=== PATIENT | male | born 1990 | race African-American/Black ===

== ENCOUNTER 2018-03-14 10:24 | Emergency (ER) | payer SELFPAY ==
[2013-12-26 00:20] VITALS: BP 142/87
[~2018-03-14] VITALS: Ht 180.3 cm; Wt 660.0 kg
--- NOTE | 2018-03-14 10:50 | PHYS DOC ---
Past Medical History Past Medical History: Bronchitis Past Surgical History: No Surgical History Alcohol Use: None Drug Use: None Adult General Chief Complaint Chief Complaint: COUGH HPI HPI Patient is a 27 year old AA male presents to the emergency Department today with complaints of a productive cough with white to pale yellow sputum for the last 5 days. He also reports chest tightness, and some shortness of breath. He denies any fever, ear pain, nausea, vomiting, diarrhea, or chest pain. He states that his throat has been a little sore. He states that he is a smoker, he denies any history of asthma or COPD. Review of Systems Review of Systems Constitutional: Denies fever or chills [] Eyes: Denies change in visual acuity, redness, or eye pain [] HENT: Reports nasal congestion and sore throat [] Respiratory: Reports productive cough and shortness of breath with chest tightness [] Cardiovascular: Denies chest pain GI: Denies abdominal pain, nausea, vomiting, or diarrhea [] Integument: Denies rash or skin lesions [] Neurologic: Denies headache, focal weakness or sensory changes [] All other systems were reviewed and found to be within normal limits, except as documented in this note. Current Medications Current Medications Current Medications Medications (Trade) Dose Ordered Sig/Rubia Start Time Stop Time Status Last Admin Dose Admin Albuterol Sulfate (Ventolin Neb Soln) 2.5 mg 1X ONCE 03/14/18 10:45 03/14/18 10:47 DC 03/14/18 11:02 2.5 MG Allergies Allergies Allergies Coded Allergies Type Severity Reaction Last Updated Verified No Known Drug Allergies 06/25/13 No Physical Exam Physical Exam Constitutional: Well developed, well nourished, no acute distress, non-toxic appearance. [] HENT: Normocephalic, atraumatic, bilateral external ears normal, oropharynx moist, postnasal drainage present, no oral exudates, nose normal. [] Eyes: PERRLA, conjunctiva normal, no discharge. [] Neck: Normal range of motion, no tenderness, supple, no stridor. [] Cardiovascular:Heart rate regular rhythm, no murmur [] Lungs & Thorax: Bilateral breath sounds diminished posteriorly to auscultation , clear in upper tai Skin: Warm, dry, no erythema, no rash. [] Extremities: No cyanosis, no clubbing, ROM intact, no edema. [] Neurologic: Alert and oriented X 3, normal motor function, normal sensory function, no focal deficits noted. [] Psychologic: Affect normal, judgement normal, mood normal. [] Current Patient Data Vital Signs Vital Signs Date Time Temp Pulse Resp B/P (MAP) Pulse Ox O2 Delivery O2 Flow Rate FiO2 03/14/18 11:02 Room Air 03/14/18 10:35 98.4 54 16 110/68 (82) 98 98.4 EKG EKG [] Radiology/Procedures Radiology/Procedures [] Course & Med Decision Making Course & Med Decision Making Pertinent Labs and Imaging studies reviewed. (See chart for details) DX: bronchitis Pt was given one albuterol nebulizer treatment in the emergency department. Increased lung sounds and patient reports feeling better after treatment. Will prescribe Tessalon Perles and a Pro Air MDI. Patient verbalized an understanding of home care, medications, follow-up, and return to ED instructions and was in agreement with the plan of care. [] Staff Physician Addendum: I was working in the ER during the course of this patient's visit. I was available for consultation as needed, but I was not directly involved in the care of this patient. Dragon Disclaimer Dragon Disclaimer This electronic medical record was generated, in whole or in part, using a voice recognition dictation system. Departure Departure Impression: Primary Impression: Bronchitis Disposition: 01 HOME, SELF-CARE Condition: STABLE Referrals: NO PCP (PCP) Patient Instructions: Acute Bronchitis, [id number] Additional Instructions: Fill prescription(s) and use as directed. Tylenol or ibuprofen prn pain/fever. Increase clear fluids. Avoid triggers such as smoke, fragrance, dust, and pollen. Follow-up with your primary care doctor as needed. Scripts Benzonatate (TESSALON PERLE) 100 Mg Capsule 1 CAP PO TID PRN for COUGH, #21 CAP 0 Refills Prov: KRISTINA BARILLAS AIR POLLUTION AUDITOR 03/14/18 Albuterol Sulfate (PROAIR HFA INHALER) 8.5 Gm Hfa.aer.ad 1-2 PUFF INH PRN Q6HRS PRN for SHORTNESS OF BREATH for 10 Days, #1 INHALER 0 Refills Prov: KRISTINA BARILLAS AIR POLLUTION AUDITOR 03/14/18 KRISTINA BARILLAS AIR POLLUTION AUDITOR Mar 14, 2018 10:50 RITA LIMON MD Mar 14, 2018 12:48
[2018-03-14] MEDS: ALBUTEROL SULFATE 2.5 MG/3 ML NEBU. NEB ONE (11:02)
[2018-03-14] MEDS ORDERED: BENZ100C PO (11:54)
[2018-03-14] MEDS ORDERED: PROAIR HFA8.5 GM INH (11:54)
== END 2018-03-14 12:02 | disposition home or self-care (01) ==
LOC: ER 10:24
DX: J40 Bronchitis, not specified as acute or chronic (principal)
CPT/HCPCS: 94640; 99283; J7613

== ENCOUNTER 2018-03-21 20:37 | Emergency (ER) | payer SELFPAY ==
[~2018-03-21] VITALS: Ht 180.3 cm; Wt 65.8 kg
[~2018-03-21 20:37] MED LIST: BENZ100C PO; PROAIR HFA8.5 GM INH
[2018-03-21 20:55] VITALS: BP 121/63
--- NOTE | 2018-03-21 21:05 | PHYS DOC ---
Past Medical History Past Medical History: Bronchitis Past Surgical History: No Surgical History Alcohol Use: None Drug Use: None Adult General Chief Complaint Chief Complaint: COUGH HPI HPI Patient is a 27 year old male with history of smoking, bronchitis, who presents today complaining of a productive cough that has been going on since the beginning of the month which is roughly 10 days. Patient denies any fever. He states he was seen in the ED a week ago for the same complaints. He states he is still has symptoms. He states he is using his inhaler as prescribed. He states he is not able to take Tessalon Perles because they make him sleepy. Review of Systems Review of Systems Constitutional: Denies fever or chills [] Eyes: Denies change in visual acuity, redness, or eye pain [] HENT: Denies nasal congestion or sore throat [] Respiratory: Reports cough, denies shortness of breath [] Cardiovascular: No additional information not addressed in HPI [] GI: Denies abdominal pain, nausea, vomiting, bloody stools or diarrhea [] : Denies dysuria or hematuria [] Musculoskeletal: Denies back pain or joint pain [] Integument: Denies rash or skin lesions [] Neurologic: Denies headache, focal weakness or sensory changes [] All other systems were reviewed and found to be within normal limits, except as documented in this note. Allergies Allergies Allergies Coded Allergies Type Severity Reaction Last Updated Verified No Known Drug Allergies 06/25/13 No Physical Exam Physical Exam Constitutional: Well developed, well nourished, no acute distress, non-toxic appearance. [] HENT: Normocephalic, atraumatic, bilateral external ears normal, oropharynx moist, no oral exudates, nose normal. [] Eyes: PERRLA, EOMI, conjunctiva normal, no discharge. [] Neck: Normal range of motion, no tenderness, supple, no stridor. [] Cardiovascular:Heart rate regular rhythm, no murmur [] Lungs & Thorax: Bilateral breath sounds clear to auscultation [] Abdomen: Bowel sounds normal, soft, no tenderness, no masses, no pulsatile masses. [] Skin: Warm, dry, no erythema, no rash. [] Back: No tenderness, no CVA tenderness. [] Extremities: No tenderness, no cyanosis, no clubbing, ROM intact, no edema. [] Neurologic: Alert and oriented X 3, normal motor function, normal sensory function, no focal deficits noted. [] Psychologic: Affect normal, judgement normal, mood normal. [] Current Patient Data Vital Signs Vital Signs Date Time Temp Pulse Resp B/P (MAP) Pulse Ox O2 Delivery O2 Flow Rate FiO2 03/21/18 20:55 98.0 78 16 121/63 (82) 99 Room Air 98.0 EKG EKG [] Radiology/Procedures Radiology/Procedures [] Course & Med Decision Making Course & Med Decision Making Pertinent Labs and Imaging studies reviewed. (See chart for details) This is a 27-year-old male patient with history of smoking presenting today with a productive cough intermittently for the last 10 days. Patient was seen in the ED a week ago, started on Tessalon Perles and albuterol inhaler. Symptoms are still present. He continues to smoke. He was advised to consider smoking cessation. Chest x-ray interpreted by Dr. Hernández is negative for any acute findings. Patient was discharged with instructions to continue using breathing treatments as needed. Discharged with prednisone for 5 days. Follow-up with the PCP in 1-2 weeks. Dragon Disclaimer Dragon Disclaimer This electronic medical record was generated, in whole or in part, using a voice recognition dictation system. Departure Departure Impression: Primary Impression: Acute bronchitis Additional Impression: Smoking addiction Disposition: 01 HOME, SELF-CARE Condition: STABLE Referrals: NO PCP (PCP) Follow-up in one week. Patient Instructions: Acute Bronchitis, [id number], Smoking Cessation Additional Instructions: You were evaluated in the emergency room for ongoing bronchitis. Consider smoking cessation. Continue using breathing treatments as needed. You can take the Tessalon Perles at night when you are sleeping. Complete your prednisone. Follow-up with your own primary care doctor in one week. [] Scripts Prednisone (PREDNISONE) 50 Mg Tablet 1 TAB PO DAILY, #5 TAB Prov: YESSY PRITCHETT APRN 03/21/18 Attending Co-Sign Attending Co-Sign The patient was not seen by me. The [facility] chart was reviewed. I agree with the plan of care. Problem Qualifiers Primary Impression: Acute bronchitis Bronchitis organism: unspecified organism Qualified Codes: J20.9 - Acute bronchitis, unspecified YESSY PRITCHETT APRN Mar 21, 2018 21:05 CLAUDIA HERNÁNDEZ MD Mar 24, 2018 14:24
[2018-03-21] MEDS ORDERED: PRED50TA PO (21:34)
--- NOTE | 2018-03-22 06:16 | RAD ---
Chest PA and lateral: Reason for examination: Cough and fever for 2 days. The heart size is normal. Mediastinum is unremarkable. Lung tai are clear. No acute bony abnormalities are seen. Impression: No acute cardiopulmonary disease. Electronically signed by: Sahra Covington MD (03/22/2018 6:13 AM) [facility] [place]
== END 2018-03-21 21:41 | disposition home or self-care (01) ==
LOC: ER 20:37
DX: J20.9 Acute bronchitis, unspecified (principal); F17.200 Nicotine dependence, unspecified, uncomplicated
CPT/HCPCS: 71046; 99284